=== PATIENT | female | born 1935 | race African-American/Black ===

== ENCOUNTER 2022-05-09 19:17 | Inpatient (IN) | payer OTHER ==
[2022-05-09] MEDS ORDERED: DEXTROSE 50%-WATER 25 GM/50 ML DISP.SYRIN ONE ×2 (20:19→20:38)
[2022-05-09] MEDS ORDERED: LACTATED RINGERS SOLUTION 1000 ML INFUS.BAG IV ONE (21:16)
[2022-05-09 21:19] LABS: ARTERIAL BLD GAS O2 SATURATION 99.3 % (95-98); ARTERIAL BLOOD GAS BASE EXCESS 9.1 mmol/L (-2-2); ARTERIAL BLOOD GAS pH 7.556 (7.350-7.450)
[2022-05-09 21:21] VITALS: BMI 21.4
[2022-05-09 21:42] LABS: MAGNESIUM 2.1 mg/dL (1.8-2.4)
[2022-05-09 21:46] LABS: PHOSPHOROUS 1.6 mg/dL (2.5-4.9)
[2022-05-09 21:47] LABS: CHLORIDE 101 mmol/L (98-107); SODIUM 140 mmol/L (136-145)
[2022-05-09 21:49] LABS: CALCIUM 8.5 mg/dL (8.5-10.1)
[2022-05-09 21:50] LABS: ALBUMIN 1.9 g/dl (3.4-5.0); ANION GAP 6 MMOL/L (8-16); BLOOD UREA NITROGEN 51.4 mg/dL (7-18); CO2 32 mmol/L (21-32); GLUCOSE,RANDOM 102 mg/dL (74-106)
[2022-05-09 21:51] LABS: BASO % 0.1 % (0-2.0); EOS % 0.1 % (0-4.5); HEMATOCRIT 24.8 % (32.4-45.2); HEMOGLOBIN 8.3 GM/dL (10.7-15.3); LYMPH % 13.6 % (8-40); MCH 35.3 pg (25.7-33.7); MCHC 33.6 g/dl (32.0-36.0); MEAN CELL VOLUME 105.1 fl (80-96); MEAN PLT VOLUME 9.6 fl (7.5-11.1); MONO % 6.6 % (3.8-10.2); NEUT % 79.6 % (42.8-82.8); PLATELET COUNT 129 10^3/uL (134-434); RBC 2.36 M/mm3 (3.60-5.2); RDW 15.8 % (11.6-15.6); WHITE BLOOD COUNT 6.6 K/mm3 (4.0-10.0)
[2022-05-09 21:53] LABS: CREATININE 3.9 mg/dL (0.55-1.3); SGOT/AST 14 U/L (15-37); SGPT/ALT 7 U/L (13-61)
[2022-05-09 21:55] LABS: ALK PHOS 102 U/L (45-117); BILIRUBIN,TOTAL 0.4 mg/dL (0.2-1)
[2022-05-09 21:59] LABS: INR 1.52 (0.83-1.09); PROTHROMBIN TIME (PATIENT) 17.5 SEC (9.7-13.0)
[2022-05-09 22:02] LABS: ACTIVATED PTT 43.9 SECONDS (25.2-36.5)
[2022-05-09 22:26] LABS: ANISOCYTOSIS 2+; MACROCYTOSIS 2+; TARGET CELLS 1+
[2022-05-09] MEDS ORDERED: PANTOPRAZOLE SODIUM 40 MG VIAL IVPUSH ONE (22:47)
[2022-05-09] MEDS ORDERED: PANTOPRAZOLE SODIUM 80 MG/200 ML BAG IVPB ONE (23:31)
[2022-05-10 04:19] LABS: URINE APPEARANCE TURBID; URINE COLOR BROWN; URINE GLUCOSE (UA) NEGATIVE (NEGATIVE)
[2022-05-10 04:20] LABS: PH,URINE 8.5 (5.0-8.0); URINE BILIRUBIN 1+ (NEGATIVE); URINE KETONE TRACE (NEGATIVE)
[2022-05-10 04:21] LABS: URINE LEUK ESTERASE 3+ (NEGATIVE); URINE NITRITE 1+ (NEGATIVE); URINE PROTEIN 3+ (NEGATIVE); URINE UROBILINOGEN 0.2 mg/dL (0.2-1.0)
[2022-05-10] MEDS ORDERED: GLUCAGON 1 MG KIT IM ONE (04:22)
[2022-05-10 04:27] LABS: EPI CELLS 20-25 /uL (0-25.1); URINE RBC >100 /uL (0-23.9); URINE WBC 50-75 /uL (0-25.8)
[2022-05-10 04:28] LABS: URINE BACTERIA MANY /uL (0-1359)
[2022-05-10] MEDS ORDERED: PIPERACILLIN/TAZOB 2.25 GM 2.25 GM in DEXTROSE 5%-WATER - 50 ML IVPB ONE (04:40)
[2022-05-10] MEDS ORDERED: PIPERACILLIN/TAZOB 2.25 GM 2.25 GM/50 ML BAG IVPB ONE ×2 (04:42→20:14)
[2022-05-10] MEDS ORDERED: DEXTROSE 50%-WATER - 25 GM/50 ML VIAL IVPUSH PRN (06:16)
[2022-05-10] MEDS ORDERED: DEXTROSE 50%-WATER 25 GM/50 ML DISP.SYRIN IVPUSH PRN (06:53)
[2022-05-10 07:58] LABS: ALBUMIN 1.7 g/dl (3.4-5.0); BASO % 0.6 % (0-2.0); CALCIUM 8.3 mg/dL (8.5-10.1); EOS % 0.4 % (0-4.5); HEMOGLOBIN 7.8 GM/dL (10.7-15.3); LYMPH % 9.8 % (8-40); MCH 35.6 pg (25.7-33.7); MEAN CELL VOLUME 104.6 fl (80-96); MEAN PLT VOLUME 9.5 fl (7.5-11.1); MONO % 4.2 % (3.8-10.2); PLATELET COUNT 119 10^3/uL (134-434); RDW 16.1 % (11.6-15.6); WHITE BLOOD COUNT 10.3 K/mm3 (4.0-10.0)
[2022-05-10 08:03] LABS: BILIRUBIN,TOTAL 0.3 mg/dL (0.2-1); TOT PROT 5.8 g/dl (6.4-8.2)
[2022-05-10] MEDS ORDERED: DEXTROSE 50%-WATER 25 GM/50 ML DISP.SYRIN ONE (17:41)
[2022-05-10 18:05] VITALS: TEMP 96.7
[2022-05-10] MEDS ORDERED: VANCOMYCIN/WATER FOR INJ (PEG) 1,000 MG/200 ML BAG IVPB ONE ×2 (19:26→20:14)
[2022-05-10] MEDS ORDERED: PIPERACILLIN/TAZOB 2.25 GM 2.25 GM in DEXTROSE 5%-WATER - 50 ML IVPB SCH (19:30)
[2022-05-10 23:29] VITALS: BP 126/66; PULSE 92; RESP 14
== END 2022-05-10 23:00 | disposition left against medical advice (07) | DRG 871 ==
LOC: JER 19:17 → JERBED 21:17
PROVIDERS: ADMIT Internal Medicine; ATTEND Internal Medicine
DX: A41.9 Sepsis, unspecified organism (principal); G93.41 Metabolic encephalopathy; N18.6 End stage renal disease; I12.0 Hypertensive chronic kidney disease with stage 5 chronic kidney disease or end stage renal disease; R64 Cachexia; I69.351 Hemiplegia and hemiparesis following cerebral infarction affecting right dominant side; N39.0 Urinary tract infection, site not specified; G30.9 Alzheimer's disease, unspecified; D69.59 Other secondary thrombocytopenia; D64.9 Anemia, unspecified; K21.9 Gastro-esophageal reflux disease without esophagitis; I48.91 Unspecified atrial fibrillation; E78.5 Hyperlipidemia, unspecified
CPT/HCPCS: 0241U-QW; 36415; 36600; 70450-TC; 71045-TC-FY; 74176-TC; 80053; 81003; 82550; 82553; 82803; 82962; 83605; 83735; 84100; 84484; 85025; 85610; 85730; 86850; 86900; 86901; 87040; 87086; 87186; 93005; 93010; 99291